=== PATIENT | male | born 1980 | race Caucasian/White ===

== ENCOUNTER 2023-10-05 17:58 | Emergency (ER) | payer BC, SELFPAY ==
--- NOTE | ~2023-10-05 | XR_ITS ---
EXAMINATION: XR chest 1V portable Exam Date/Time: 10/05/2023 19:45 CDT HISTORY: SOB Comparison: None. RESULT: Lines, tubes, and devices: None. Lungs and pleura: Clear. Cardiomediastinal silhouette: Normal. Other: No acute osseous or upper abdominal finding. IMPRESSION: No acute cardiopulmonary process. Reviewed, dictated and finalized at location K.
[2023-10-05 18:00] VITALS: BP 116/72; PULSE 118; RESP 20; TEMP 37.5; O2SAT 96
[2023-10-05 19:22] VITALS: RESP 18
--- NOTE | 2023-10-05 19:44 | ED.FEVER ---
HPI - Fever General Chief Complaint: Fever Stated Complaint: not feeling well Time Seen by Provider: 10/05/23 19:11 History of Present Illness HPI Narrative: Patient is a 43-year-old male who presents to the emergency department this evening complaining of a cough, congestion, generalized malaise and feeling of fatigue for the past 24 hours. 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 He is currently denying any chest pain. He admits that the cough and shortness of breath started yesterday. Admits to mild nausea but denies any vomiting episodes. No additional symptoms or concerns at this time. Related Data Allergies Allergy/AdvReac Type Severity Reaction Status Date / Time No Known Allergies Allergy Mild Verified 10/05/23 18:06 Review of Systems Review of Systems: All systems are reviewed and are negative unless stated otherwise in the HPI. [facility] Social History Social History Smoking status: Never smoker Second hand tobacco smoke exposure: No Alcohol intake: never Exam Narrative: General: Alert, awake, afebrile, in no acute distress. HEENT: PERRL, no rhinorrhea, no post nasal drip, oropharynx clear. Cardiovascular: Regular rate and rhythm, no murmurs, rubs or gallops, no peripheral edema. Respiratory: Clear to auscultation bilaterally, no tachypnea, no wheezing, no rhonchi, no rubs, no respiratory distress. Abdomen: Soft, nontender, nondistended, no rebound, no guarding, no peritoneal signs. Musculoskeletal: No joint swelling or deformity, normal muscle tone. Skin: No rashes or petechia, no signs of infection. Neurological: Alert and oriented to person, place, and time. Follows all commands. No focal deficits, speech is clear and fluent. Course Vital Signs Vital signs: Vital Signs Temperature 99.5 F 10/05/23 18:00 Pulse Rate 118 H 10/05/23 18:00 Respiratory Rate 20 10/05/23 18:00 Blood Pressure 116/72 10/05/23 18:00 Pulse Oximetry 96 10/05/23 18:00 Oxygen Delivery Room Air 10/05/23 18:00 Temperature 99.5 F 10/05/23 18:00 Pulse Rate 118 H 10/05/23 18:00 Respiratory Rate 18 10/05/23 19:22 Blood Pressure 116/72 10/05/23 18:00 Pulse Oximetry 96 10/05/23 18:00 Oxygen Delivery Room Air 10/05/23 18:00 MDM - Fever MDM Narrative Medical decision making narrative: The patient was evaluated by myself in the emergency department. History is obtained from patient who is an independent historian and physical exam was performed. External medical records were reviewed at this time. Patient was administered 650 mg of oral Tylenol for low-grade fever. Viral swabs were obtained and patient did test positive for COVID. Imaging studies obtained included CXR which was independently interpreted by me revealing no acute process, which is pending final radiology interpretation. Differential diagnosis considerations include acute viral syndrome and infectious process such as pneumonia. Comorbidities impacting this visit include none. I have evaluated and discussed social determinants of health with the patient that could potentially impact subsequent diagnosis and treatment plans. On repeat assessment of the patient, reevaluation revealed that the patient is doing well and is in no acute distress. Patient symptoms have remained stable since he arrived to our emergency department. Repeat vital signs were all reviewed and noted to be stable. Differential diagnosis and treatment plan were discussed with the patient at bedside. Patient agrees with discussion and after shared medical decision making agrees with discharge. All questions were answered to the patient's satisfaction. Patient will follow up with his PCP in 3-5
[2023-10-05 19:52] LABS: Influenza A QL RT-PCR Negative (Negative); Influenza B QL RT-PCR Negative (Negative); RSV RNA, RT-PCR Negative (Negative); SARS-CoV-2 RNA PCR Positive (Negative)
[2023-10-05] MEDS: ACETAMINOPHEN 500 MG TABLET 1000 MG PO (19:59)
== END 2023-10-05 20:25 | disposition home or self-care (01) ==
PROVIDERS: Emergency Provider Emergency Medicine; PCP Family Medicine
DX: U07.1 COVID-19 (principal)
CPT/HCPCS: 71045; 87637; 99283; A9270